=== PATIENT | male | born 1980 | race Caucasian/White ===

== ENCOUNTER 2023-08-26 15:21 | Emergency (ER) | payer OTHER, SELFPAY ==
[2023-08-26 15:22] VITALS: BMI 33.4
[2023-08-26 15:23] VITALS: BP 158/97
--- NOTE | 2023-08-26 16:31 | ED.GENMED ---
History of Present Illness
General
Chief Complaint: Bowel Problem
Time Seen by Provider: 08/26/23 16:15
History of Present Illness
History of Present Illness:
43-year-old male presenting with diffuse abdominal pain and constipation for the past 9 days. He states that he has not had a bowel movement in 9 days. Patient states that he has had nausea, no vomiting. Patient states that he is still passing
some gas. Patient reports history of having a right cranial hernia repair and states 'mesh came out, wrapped around my intestines and they had to operate again years ago'. Patient states that he feels that his abdomen is more distended. Patient
states that he used MiraLAX, another oral medication, and 2 enemas with no relief.
Phy Exam
Physical Exam
Physical Exam:
General: Alert, no acute distress
Head: NCAT
Eyes: clear conjunctiva
Neck: supple
Cardiac: regular rate and rhythm, no murmur
Lungs: clear to auscultation bilaterally. No wheezes, rales, or rhonchi. Speaking full unlabored sentences. No respiratory distress.
Abdomen: soft, distended, diffusely tender. No rebound or guarding.
MSK: no lower extremity edema bilaterally. No deformity
Skin: warm, dry
Neuro: Alert and oriented x3. no focal deficits
Course
Orders/Labs/Results
Orders:
Orders
08/26/23 15:39
CR Obstruct Series W/pa Chest Urgent
Comment:
Reason For Exam: no bm for 9 days; pain
08/26/23 17:05
Iohexol [Omnipaque] See Protocol PO NOW STA
08/26/23 17:06
CT Abd/pel W Iv And Oral Contr Urgent
Comment:
Reason For Exam: diffuse abdominal pain, constipation
08/26/23 17:38
CBC/With Diff [Complete Blood Count/With Diff] Urgent
CMP [Comprehensive Metabolic Panel] Urgent
Lipase Urgent
Abnormal Lab Results
08/26/23
17:38
Abs Immat Gran (auto) 0.1 H 10^3/uL
(0-0.05)
Immature Gran % 0.7 H %
(0-0.5)
08/26/23 17:38
08/26/23 17:38
Vital Signs
Initial and Last Documented VS:
Initial Vital Signs
Temp Pulse Resp BP Pulse Ox
97.8 F 89 20 158/97 94
08/26/23 15:23 08/26/23 15:23 08/26/23 15:23 08/26/23 15:23 08/26/23 15:23
Last Documented Vital Signs
Temp Pulse Resp BP Pulse Ox
97.8 F 76 18 150/99 99
08/26/23 15:23 08/26/23 19:19 08/26/23 19:19 08/26/23 19:19 08/26/23 19:19
MDM/Problems Addressed
Differential Diagnosis Includes:
Patient presents to the Emergency Department with abdominal tension, abdominal pain, constipation for 9 days
Number and Complexity of Problems Addressed at the Encounter
� Chronic conditions affecting care:
� Acute Exacerbation and/or Progression of Chronic Illness:
� Differential Diagnosis includes: Bowel obstruction, constipation
Amount and/or Complexity of Data to be Reviewed and Analyzed
� I performed an independent evaluation of and my interpretation is:
EKG:
CT:
Xrays:
Laboratory Studies: Lipase, electrolytes, creatinine, white count within normal limits
Other:
� Review of other/old records reveals:
� Clinical information was obtained by an independent historian:
� Prescriptions/Medications Considered but not given:
� Further testing considered but not performed:
Risk of Complications and/or Morbidity or Mortality of Patient Management
� Social Determinants of health affecting care:
� Discussion with other providers (PCP, Hospitalists, Consultants, etc):
� Escalation of care including admission/observation vs risk of discharge considered: 43-year-old male history of previous abdominal surgeries presenting with no bowel movement in 9 days. Patient states that he was taking multiple different oral
medications as well as 2 enemas today with minimal relief. Patient reports diffuse abdominal pain and feeling bloated. Patient states that he is passing less gas. Abdominal x-ray reviewed, no bowel obstruction. Due to history of previous
abdominal surgeries, obtained CT abdomen pelvis rule out bowel obstruction. Labs reviewed, unremarkable. CT abdomen pelvis reviewed, No acute pathology of the abdomen nor pelvis identified. Mild fecal material in the colon. Discussed results with
patient at bedside. Recommended to continue taking MiraLAX daily until having daily bowel movements. Vital stable. Stable for discharge with PCP follow-up
*Critical Care Note
Total Time (30-74mins, 75-104mins- exclusive of procedures): Not Applicable
ED Attending Note
-
Portions of this chart may have been created with voice recognition software.� Occasional wrong word or��sound alike� substitutions may have occurred due to the inherent limitations of voice recognition software.
Discharge Plan
Departure
Patient Disposition: Home (Routine Discharge)
Date of Disposition: 08/26/23
Time of Disposition: 21:06
Patient with high blood pressure during this ER visit?: Yes
Discharge Problem:
Constipation
Instructions: Constipation, Adult ED, BLOOD PRESSURE
Referrals:
[facility] [Family Provider] -
Activity Restrictions/Additional Instructions:
CT abdomen pelvis shows mild fecal material, no bowel obstruction. Take Miralax daily until have daily bowel movements
Follow up with primary care doctor in 1-2 days
Return to the emergency department for vomiting or new/worsening symptoms
Interventions
Interventions:
*Risk Screen - Suicide Last Done: 08/26/23 15:23
*General Assessment Last Done: 08/26/23 15:23
*Neglect/Abuse Screening Last Done: 08/26/23 15:23
ED- Fall Risk Assessment Last Done: 08/26/23 16:07
JM-Hdaciw-Fhhzoxxedp Assessment Last Done: 08/26/23 16:07
Discharge Date and Time
Print Language: BULGARIAN
[2023-08-26] MEDS: OMNIPAQUE 50 ML PO (17:31)
[2023-08-26 17:45] LABS: % Basophils 0.6 % (0-2); % Eosinophils 2.2 % (0-6); % Immature Granulocytes 0.7 % (0-0.5); % Monocytes 8.3 % (1.7-9.3); % Neutrophils 56.2 % (42.2-75.2); Absolute Eosinophils 0.2 10^3/uL (0-0.7); Absolute Immature Granulocytes 0.1 10^3/uL (0-0.05); Absolute Lymphocytes 2.3 10^3/uL (1.2-3.4); Absolute Monocytes 0.6 10^3/uL (0.1-0.6); Absolute Neutrophils 4.1 10^3/uL (1.4-6.5); Hemoglobin 14.3 g/dL (13.0-18.0); Mean Corp Hgb Conc. 33.3 g/dL (33.0-37.0); Mean Corpuscular Hgb 27.5 pg (27.0-31.0); Mean Corpuscular Volume 82.7 fL (80.0-94.0); Mean Platelet Volume 8.5 fL (7.4-10.4); Nucleated Red Blood Cells % 0 % (-); Platelet Count 278 10^3/uL (130-400); Red Cell Dist. Width 13.2 % (11.5-14.5); White Blood Cell Count 7.2 10^3/uL (4.8-10.8)
[2023-08-26 18:04] LABS: ALT (SGPT) 49 U/L (0-50); AST (SGOT) 35 U/L (17-59); Albumin 4.2 g/dl (3.5-5.0); Alkaline Phosphatase 120 U/L (38-126); Blood Urea Nitrogen 12 mg/dl (9-20); Calcium 9.4 mg/dl (8.4-10.2); Carbon Dioxide 27 mmol/L (22-30); Chloride 104 mmol/L (98-107); Estimated Creatinine Clearance > 125 ml/min; Glucose 93 mg/dl (70-99); Lipase 77 U/L (23-300); Potassium 4.2 mmol/L (3.5-5.1); Sodium 139 mmol/L (135-145); Total Bilirubin 0.5 mg/dl (0.2-1.3); Total Protein 7.2 g/dl (6.3-8.2); eGFR > 60.00
[2023-08-26 19:19] VITALS: BP 150/99
[2023-08-26 21:45] VITALS: BP 148/79
== END 2023-08-26 22:00 | disposition home or self-care (01) ==
LOC: EMR 15:21
PROVIDERS: EMERGENCY PHYSICIAN Emergency Medicine
DX: K59.00 Constipation, unspecified (principal); R10.84 Generalized abdominal pain; R11.0 Nausea; R14.0 Abdominal distension (gaseous); R03.0 Elevated blood-pressure reading, without diagnosis of hypertension
CPT/HCPCS: 99285; 74022; 74177; 80053; 83690; 85025; Q9967

== ENCOUNTER 2025-01-06 06:18 | Day surgery (SDC) | payer OTHER, SELFPAY | END 2025-01-06 15:37 | disposition home or self-care (01) | LOC: GI 06:18 | PROVIDERS: ATTENDING PHYSICIAN Internal Medicine Gastroenterology | DX: K62.5 Hemorrhage of anus and rectum (principal); K64.8 Other hemorrhoids; K57.30 Diverticulosis of large intestine without perforation or abscess without bleeding; R19.5 Other fecal abnormalities; R19.4 Change in bowel habit; K31.89 Other diseases of stomach and duodenum; D12.2 Benign neoplasm of ascending colon; D12.4 Benign neoplasm of descending colon | CPT/HCPCS: 45385; 45380; 43239; 88305; 88342 ==